=== PATIENT | female | born 1990 | race Two or more races ===

== ENCOUNTER 2023-12-10 06:31 | Day surgery (SDC) | payer OTHER ==
[2023-12-10] MEDS ORDERED: CEFAZOLIN SODIUM 1,000 MG VIAL ONE (11:32)
[2023-12-10] MEDS ORDERED: ONDANSETRON HCL 2 MG/ML VIAL ONE (15:43)
[2023-12-10] MEDS ORDERED: MORPHINE SULFATE 4 MG/ML VIAL IV ONE ×2 (15:45→16:15)
[2023-12-10] MEDS ORDERED: ONDANSETRON HCL 2 MG/ML VIAL IV ONE (15:50)
== END 2023-12-10 17:30 | disposition home or self-care (01) ==
LOC: CIR.AMB 06:31
PROVIDERS: ATTEND Surgery
DX: K80.10 Calculus of gallbladder with chronic cholecystitis without obstruction (principal)